=== PATIENT | male | born 1980 | race Hispanic/Latino ===

== ENCOUNTER 2023-10-30 08:01 | Emergency (ER) | payer OTHER ==
[~2023-10-30] VITALS: Ht 154.9 cm; Wt 116.6 kg
[~2023-10-30 08:01] MED LIST: CLIN-141 PO; LEVO750T68 PO; LISI2.5T13 PO; SIMV5TAB58 PO
[2023-10-30 08:36] LABS: RAPID GROUP A STREP negative (NEGATIVE)
[2023-10-30 08:41] LABS: SARS-CoV-2, RNA, NAAT NEGATIVE SARS CoV-2 (NEGATIVE)
[2023-10-30 08:46] LABS: INFLUENZA TYPE B Negative For Type B (NEGATIVE)
[2023-10-30 09:37] LABS: INFLUENZA TYPE A Positive For Type A (NEGATIVE)
[2023-10-30] MEDS ORDERED: OSEL75 PO (10:54)
[2023-10-30] MEDS ORDERED: BENZ-39 PO (10:54)
[2023-10-30 10:57] VITALS: BP 117/75; PULSE 96; RESP 18; O2SAT 99
== END 2023-10-30 11:02 | disposition home or self-care (01) ==
LOC: EDH 08:01
DX: J10.1 Influenza due to other identified influenza virus with other respiratory manifestations (principal); R50.9 Fever, unspecified; K57.92 Diverticulitis of intestine, part unspecified, without perforation or abscess without bleeding; K57.90 Diverticulosis of intestine, part unspecified, without perforation or abscess without bleeding; Z20.822 Contact with and (suspected) exposure to COVID-19; Z79.899 Other long term (current) drug therapy; Z98.890 Other specified postprocedural states; Z88.6 Allergy status to analgesic agent; Z88.8 Allergy status to other drugs, medicaments and biological substances
CPT/HCPCS: 87635; 87804; 87880